=== PATIENT | female | born 1950 | race Caucasian/White ===

== ENCOUNTER 2021-12-20 10:03 | Emergency (ER) | payer MEDICARE, OTHER ==
[2021-12-20] MEDS ORDERED: Iopamidol 370 76% 125 ML VIAL FS ONE (10:04)
[2021-12-20] MEDS ORDERED: Succinylcholine 200 MG/10 ml SYRINGE FS ONE (10:04)
[2021-12-20] MEDS ORDERED: PROPOFOL 200 MG/20 ML VIAL IV ONE (10:04)
[2021-12-20] MEDS ORDERED: Sodium Chloride 0.9% 100 ML BAG IVPB ONE (10:04)
[2021-12-20] MEDS ORDERED: Dexamethasone 10 MG/ML VIAL ONE (10:32)
[2021-12-20] MEDS ORDERED: Ketamine 50 MG/ML (10ML VIAL) ONE ×2 (10:43→12:43)
[2021-12-20] MEDS ORDERED: Rocuronium Bromide 10 MG/ML (10ML VIAL) ONE (10:43)
[2021-12-20 10:58] LABS: #Basophils 0.1 thou/uL (0.0-0.2); #Lymphocytes 0.6 thou/uL (1.20-3.40); #Monocytes 0.3 thou/uL (0.11-0.59); #Neutrophils 12.1 thou/uL (1.40-6.50); %Basophils 0.4 % (0.0-1.0); %Lymphocytes 4.6 % (21.0-51.0); %Neutrophils 92.9 % (42.0-75.0); Hemoglobin 10.2 g/dL (12.0-16.0); Mean Corpuscular HGB CONC 31.9 g/dL (32.0-36.0); Mean Corpuscular Hemoglobin 30.9 pg (27.0-31.0); Mean Corpuscular Volume 96.8 fL (78.0-98.0); Mean Platelet Volume 6.1 fL (7.4-10.4); Platelet Count 299 thou/uL (130-400); Red Blood Cell (RBC) Count 3.31 mill/uL (4.20-5.40); White Blood Cell (WBC) Count 13.1 thou/uL (4.8-10.8)
[2021-12-20 11:04] LABS: Base Excess-Venous -13.3 mmol/L (-2.0 to 3.0); Bicarbonate (HCO3v) 12.9 mmol/L (22.0-28.0); CO2 Tension (PvCO2) 30.5 mmHg (42.0-51.0); Calcium, Ionized 1.02 mmol/L (1.15-1.33); Chloride 100 mmol/L (98-107); Hemoglobin - Calc 10.9 g/dL (12.0-16.0); Potassium 3.3 mmol/L (3.5-5.1); Sodium 136 mmol/L (138-145); T. Carbon Dioxide 13.9 mmol/L (22.0-28.0); vO2 Saturation-calc 99.5 % (60.0-85.0)
[2021-12-20] MEDS ORDERED: Propofol 1,000 MG/100 ML VIAL IV ONE (11:07)
[2021-12-20] MEDS ORDERED: Midazolam HCl 5 mg/ml Vial ONE ×3 (11:10→13:28)
[2021-12-20 11:12] LABS: ALT (SGPT) 26 U/L (8-55); AST (SGOT) 88 U/L (5-34); Albumin 3.9 g/dL (3.4-4.8); Alkaline Phosphatase 75 U/L (40-110); Anion Gap 28 mmol/L (10-20); BUN (Urea Nitrogen) 28 mg/dL (9.8-20.1); Bilirubin, Total 1.5 mg/dL (0.2-1.2); Calc. Creatinine Clearance 0 mL/min (70-130); Calcium 8.9 mg/dL (7.8-10.44); Carbon Dioxide 11 mmol/L (23-31); Chloride 99 mmol/L (98-107); Globulin 3.3 g/dL (2.4-3.5); Glucose 186 mg/dL (83-110); Potassium 3.4 mmol/L (3.5-5.1); Protein, Total 7.2 g/dL (5.8-8.1); Sodium 135 mmol/L (136-145)
[2021-12-20] MEDS ORDERED: Norepinephrine 4 MG/4 ML VIAL ONE (11:26)
[2021-12-20 11:51] LABS: Base Excess-Venous -15.9 mmol/L (-2.0 to 3.0); Bicarbonate (HCO3v) 13.4 mmol/L (22.0-28.0); CO2 Tension (PvCO2) 45.5 mmHg (42.0-51.0); Calcium, Ionized 1.09 mmol/L (1.15-1.33); Chloride 101 mmol/L (98-107); Hemoglobin - Calc 9.4 g/dL (12.0-16.0); Potassium 3.3 mmol/L (3.5-5.1); Sodium 138 mmol/L (138-145); T. Carbon Dioxide 14.8 mmol/L (22.0-28.0)
[2021-12-20] MEDS ORDERED: Fentanyl 100 MCG/2 ML VIAL ONE ×2 (12:07→13:28)
[2021-12-20] MEDS ORDERED: EPINEPHrine 1 MG/10 ML Abboject SYRINGE ONE (12:15)
[2021-12-20] MEDS ORDERED: DOPamine 400 MG/D5W 250 ML 250 ML ONE (12:25)
[2021-12-20 13:28] LABS: Base Excess (BEa) POC ABG -14.4 mmol/L (-2.0 to +3.0); Calcium, Ionized 1.12 mmol/L (1.15-1.33); Chloride POC ABG 103 mmol/L (98-107); Hematocrit POC ABG 42 % (38-51); Hemoglobin POC ABG 14.4 g/dL (12.0-17.0); O2 Saturation (calc) POC ABG 87.5 % (94.0-98.0); Sodium POC ABG 138 mmol/L (138-146); pH (Arterial) 7.119 (7.35-7.45)
[2021-12-20 14:32] LABS: SARS-CoV-2 NAA Rapid Test DETECTED (NotDetected)
[2021-12-20 14:43] LABS: pH (Arterial) 7.169 (7.35-7.45)
[2021-12-20 14:44] LABS: Base Excess (BEa) POC ABG -13.9 mmol/L (-2.0 to +3.0); Hematocrit POC ABG 25 % (38-51); Hemoglobin POC ABG 8.6 g/dL (12.0-17.0); O2 Saturation (calc) POC ABG 74.8 % (94.0-98.0); Potassium POC ABG 3.1 mmol/L (3.5-4.5); Sodium POC ABG 138 mmol/L (138-146)
[2021-12-20 14:45] LABS: Calcium, Ionized 1.13 mmol/L (1.15-1.33); Chloride POC ABG 102 mmol/L (98-107)
[2021-12-20 15:31] LABS: CKMB 33.7 ng/mL (0-6.6)
[2021-12-20] MEDS ORDERED: Sodium Chloride 0.9% 3,000 ML ONE (16:28)
[2021-12-20] MEDS ORDERED: Amiodarone 150 MG/3 ML VIAL ONE (16:29)
[2021-12-20] MEDS ORDERED: Sodium Chloride 0.9% 100 ML ONE (16:29)
== END 2021-12-20 14:45 | disposition short-term general hospital (02) ==
LOC: MADERS 10:03
DX: U07.1 COVID-19 (principal); A41.9 Sepsis, unspecified organism; J12.82 Pneumonia due to coronavirus disease 2019; J96.01 Acute respiratory failure with hypoxia; N17.9 Acute kidney failure, unspecified; I21.4 Non-ST elevation (NSTEMI) myocardial infarction; E87.2 Acidosis
CPT/HCPCS: 71045; 71275; 80053; 82330; 82435; 82553; 82803; 83605; 84132; 84295; 84484; 85014; 85025; 87040; U0002; 31500; 36556; 36680; 51702; 96365; 96375; 99292; J0171; J0282; J1100; J1265; J2250; J2704; J3010; J3490; J7050; J7620; Q9967